=== PATIENT | male | born 1980 | race Caucasian/White ===

== ENCOUNTER 2021-02-14 03:19 | Emergency (ER) | payer OTHER ==
[~2021-02-14] VITALS: Ht 180.3 cm; Wt 72.6 kg
[2021-02-14 03:29] VITALS: BP 118/83
== END 2021-02-14 04:42 | disposition left against medical advice (07) ==
LOC: M.ERS 03:19
DX: S80.861A Insect bite (nonvenomous), right lower leg, initial encounter (principal); Z53.21 Procedure and treatment not carried out due to patient leaving prior to being seen by health care provider